=== PATIENT | female | born 1975 | race Caucasian/White ===

== ENCOUNTER 2016-12-04 00:04 | Emergency (ER) | payer MEDICAID ==
[~2016-12-04] VITALS: Ht 160 cm; Wt 147.0 kg
[2016-12-04 01:52] VITALS: BP 146/85
[2016-12-04] MEDS: HYDROCODONE/ACETAMINOPHEN 10/325MG TABLET PO ONE (01:52)
== END 2016-12-04 04:10 | disposition home or self-care (01) ==
LOC: ER 00:04
DX: S93.401A Sprain of unspecified ligament of right ankle, initial encounter (principal); S93.402A Sprain of unspecified ligament of left ankle, initial encounter; M25.562 Pain in left knee; I10 Essential (primary) hypertension; E11.9 Type 2 diabetes mellitus without complications; W19.XXXA Unspecified fall, initial encounter; Y93.89 Activity, other specified; Y92.89 Other specified places as the place of occurrence of the external cause; Y99.8 Other external cause status
CPT/HCPCS: 73562; 73610; 99284; L1830